=== PATIENT | male | born 1960 | race Caucasian/White ===

== ENCOUNTER 2017-02-26 18:20 | Inpatient (IN) | payer OTHER ==
[~2017-02-26] VITALS: Ht 177.8 cm; Wt 90.0 kg
[~2017-02-26 18:20] MED LIST: CYCL-319 PO; LYRI25 PO; OXYC30TA PO; OXYM30TA PO
[2017-02-26 18:45] VITALS: Ht 177.8 cm; Wt 90.0 kg
--- NOTE | 2017-02-26 19:26 | ERD ---
ER Documentation Chief Complaint Date/Time DATE: 02/26/17 TIME: 19:25 Chief Complaint chronic back pain due to back injury 2014 HPI 56-year-old male who presents emergency department for chronic mid/lower back pain that is due to his work injury in 2014. Stated that his pain is described as achy/sharp that radiates to his bilateral arm. Denies headache, loss of consciousness, dizziness, blurry vision, changes in vision, photophobia, facial pain, ear pain, throat pain, difficulty swallowing, neck pain, shoulder pain, chest pain, cough, hemoptysis, abdominal pain, , loss of appetite, nausea, vomiting, hematochezia, diarrhea, constipation, urinary symptoms, bladder and bowel incontinences, extremity weakness, extremity tenderness, numbness or tingling sensation, recent travel, recent exposure to illness, recent antibiotic use in the last 3 months, fever, chills. Allergy: Tramadol. PMH: Diabetes. Lumbar fusions. Medications: Metformin, oxycodone, Flexeril, Lyrica, fentanyl. Surgery: Lumbar fusion surgery last April 2016. Family history: Denies family history of cardiac before the age of 50, stroke, abdominal aortic aneurysm. Primary Social History: Stated that he got injured at work. Quit smoking cigarettes in December 2015. Denies use of alcohol, use of illegal drugs. ROS All systems reviewed and are negative except as per history of present illness. Medications Home Meds Reported Medications Cyclobenzaprine Hcl* (Cyclobenzaprine Hcl*) 10 Mg Tablet, 10 MG PO TID, #90 TAB 04/28/16 Pregabalin* (Lyrica*) 25 Mg Capsule, 20 MG PO TID, CAP 04/28/16 Oxycodone Hcl* (IR) (Oxycodone Hcl*) 30 Mg Tablet, 30 MG PO Q4H Y for PAIN, TAB 04/28/16 Oxymorphone Hcl (Opana ER) 30 Mg Tab.er.12h, 30 MG PO Q12, TAB 04/28/16 Allergies Allergies: Coded Allergies: tramadol (Verified Allergy, Unknown, rash, 04/28/16) PMhx/Soc History of Surgery: Yes (LT WRIST SX) Anesthesia Reaction: No Hx Neurological Disorder: No Hx Respiratory Disorders: No Hx Cardiac Disorders: No Hx Psychiatric Problems: No Hx Miscellaneous Medical Probl: No Hx Alcohol Use: No Hx Substance Use: No Hx Tobacco Use: No (QUIT 2 MOS AGO, SMOKED 1 PPD X40 YRS) Smoking Status: Former smoker Physical Exam Vitals Vital Signs Date Time Temp Pulse Resp B/P Pulse Ox O2 Delivery O2 Flow Rate FiO2 02/26/17 18:45 97.8 96 20 188/70 98 Physical Exam CONSTITUTIONAL: Well-appearing; well-nourished; in no apparent distress. HEAD: Normocephalic; atraumatic. EYES: Conjunctiva clear, sclera non-icteric, EOM intact. PERRL Ears: Hearing intact. EACs clear, TMs non-bulging, non-inflamed, translucent & mobile, ossicles normal appearance, No obstructions, no erythema, no discharges Nose: No obstructions. No polyps. No external lesions. Mucosa non-inflamed. No external lesions, septum and turbinates normal. No rhinorrhea. No discharges. Frontal sinus is non-tender to palpation. Maxillary sinus is non-tender to palpation. MOUTH: Moist mucous membranes, no lesion, no obstructions, no vesicles, no thrush, patent airway Throat: Uvula in midline. Right tonsil is +1 with no erythema, no exudate. Left tonsil is +1 with no erythema, no exudate. Tolerating secretions well. Good gag reflex. Patent airway. Neck: Supple, without lesions, bruits, or adenopathy. No mass. Thyroid non- enlarged and non-tender to palpation. CHEST: Symmetrical chest. Respirations even and not labored. No retractions noted. CARDIOVASCULAR: Normal S1, S2. RRR. No murmurs, gallops. RESPIRATORY: Normal chest excursion with respiration; breath sounds clear and equal bilaterally; no wheezes, rhonchi, or rales. Breathing even and unlabored. Speaking in clear, full, and complete sentences w/ ease. ABDOMEN: Normal bowel sounds normal. Soft, round, non-distended, non-guarding, no tenderness, no rebound, no organomegaly, no masses, no pulsating abdominal mass. No hernia. No peritoneal signs. : No CVA tenderness. BACK: Symmetrical shoulder. Spine is midline without deformity, tenderness. No evidence of trauma or deformity. PELVIS: Stable pelvis. No evidence of trauma or deformity. MUSCULOSKELETAL: Normal gait and station. No misalignment, asymmetry, crepitation, defects, tenderness, masses, effusions, decreased range of motion, instability, atrophy or abnormal strength or tone in the head, neck, spine, ribs , pelvis or extremities except there is tenderness to L-spine area with limited range of motion. Has bilateral straight leg test. Walks with a walker. No calf tenderness. NEUROVASCULAR: Distal pulses are present. Pedal pulse are present, equal, and normal. Capillary refills are < 2 seconds. NEUROLOGIC: Alert and oriented x4. Speaks full and clear sentences. Cranial Nerves II-XII normal. Sensation to pain, touch, and proprioception normal. Grossly unremarkable. No neurologic deficits. PSYCHOLOGICAL: The patients mood and manner are appropriate. No hallucinations , delusions. Not SI. Not HI. Has the capacity to decide for self SKIN: Normal for age and ethnicity; warm; dry; good turgor; no apparent lesions or exudates. No rashes, hives, discoloration. Intact. Results 24 hrs Current Medications Medications (Trade) Dose Ordered Sig/Chaitanya Route PRN Reason Start Time Stop Time Status Last Admin Dose Admin Oxycodone/ Acetaminophen (Endocet (10/ 325)) 1 tab ONCE ONCE PO 02/26/17 19:30 02/26/17 19:53 DC Hydromorphone HCl (Dilaudid) 2 mg ONCE STAT IM 02/26/17 19:52 02/26/17 19:53 DC 02/26/17 20:18 Ketorolac Tromethamine (Toradol) 30 mg ONCE STAT IV 02/26/17 20:49 02/26/17 20:50 DC 02/26/17 21:05 Procedures/MDM Examination: Please see physical examination. Disease process, medical treatment was explained to the patient and family member. They verbalized understanding and agreed with the diagnostic tests, medical treatment, and follow-up care. EKG: Normal sinus rhythm with ventricular rate of 88 bpm. No evidence of acute myocardial infarction. Radiology: X-ray of the L-spine Impression: L4-S1 transpedicular screws with interbody graft at L4-5 and L5-S1, findings similar to the intraoperative exposures of 04/28/201616. Grade 2 spondylolisthesis at L5-S1. Remainder of the examination is unremarkable. Treatment: Dilaudid 2 mg IM. Medical decision makin-year-old male who presents emergency department for chronic mid/lower back pain that is due to his work injury in 2014. Stated that his pain is described as achy/sharp that radiates to his bilateral arm. Patient's complaint, patient history about his complaint, my physical findings, diagnostic test results are considered distant with my final diagnosis of chronic low back pain. This case was discussed with supervising emergency room physician, Dr. Everett Sanchez who also examined the patient and he also talked to the surgeon, Dr. Gomez. Both of their decisions is to admit the patient. Case was endorsed to Dr. Everett Sanchez, supervising emergency room physician. Stated that he will processed admission. Departure Diagnosis: Primary Impression: Back pain Additional Impression: Chronic back pain Condition: Stable TAMIKA FERNANDEZ Feb 26, 2017 19:26 sentences, denies pain, has no neurological deficits, has no neurovascular deficits, difficulty of breathing. Breathing even and unlabored. Lung sounds are clear to auscultation. Not in distress. Appears comfortable. Ambulatory with steady gait. Appears satisfied with care provided here in ED. Departure Diagnosis: Primary Impression: Back pain Additional Impression: Chronic back pain Condition: Stable Additional Instructions: Instructed to follow-up with his PCP in 24-48 hours. Instructed to Call 911 for chest pain, shortness of breath. Advised to come back here in ED as soon as possible for severity of symptoms which includes but not limited to: any new symptoms; shortness of breath/difficulty of breathing; cardiovascular changes; severe gastrointestinal symptoms; signs and symptoms of bleeding and or infection; signs of compartment syndrome/neurovascular changes; neurological changes/deficits. Patient and family member verbalized understanding. TAMIKA FERNANDEZ Feb 26, 2017 19:26
[2017-02-26] MEDS ORDERED: OXYCODONE/ACETAMINOPHEN (10/325) TAB PO ONE (19:30)
[2017-02-26] MEDS ORDERED: HYDROmorphONE 2 MG/ML SYG IM STA (19:52)
--- NOTE | 2017-02-26 20:21 | RADRPT ---
PROCEDURE: XR Lumbar Spine. CLINICAL INDICATION: Low back pain. TECHNIQUE: AP, cone-down lateral, and lateral views of the lumbar spine were obtained. COMPARISON: Intraoperative C-arm exposures 04/28/2016 FINDINGS: Transpedicular screws are again visualized at L4, L5 and S1, the hardware satisfactory in appearance . Vertebral bodies are normal in height. No fracture is identified. Lumbar lordosis is preserved. Grade II spondylolisthesis of L5 relative to S1 is present. Interbody grafts at L4-5 and L5-S1 ar e noted with mild anterior spondylosis at these levels. The remaining discs are preserved in statur e. Paraspinal contours are unremarkable. RPTAT:HJJR IMPRESSION: 1. L4 - S1 transpedicular screws with interbody grafts at L4-5 and L5-S1, findings similar to the in traoperative exposures of 04/28/2016. 2. Grade II spondylolisthesis at L5-S1. 3. Remainder of the examination is unremarkable. Physician Elena Date Time Electronically viewed and signed by Physician Elena on 02/26/2017 20:21 /
[2017-02-26] MEDS ORDERED: KETOROLAC 30 MG INJ IV STA (20:49)
[2017-02-26] MEDS ORDERED: ACETAMINOPHEN 325 MG TAB PO PRN (22:00)
[2017-02-26] MEDS ORDERED: ONDANSETRON 4 MG INJ IV PRN (22:00)
[2017-02-26 22:01] LABS: ADD SCAN DIFF NO
--- NOTE | 2017-02-26 22:03 | EN ---
Date/Time of Note Date/Time of Note DATE: 02/26/17 TIME: 22:01 ER Progress Note This patient's workup began in fast track. Patient has had intractable pain is not responding to his OxyContin at home. I did call his orthopedic surgeon who performed his surgery and had an appoint with him today. Was unable to see his surgeon because the surgeon was in surgery. I spoke with , who stated the patient did have a complication of a syrinx, and he would agree with admission and can see the patient in the morning. Patient has been given 2 mg of Dilaudid I am also giving dilated jacked. Is refusing p.o., which is understandable because we have nothing p.o. strong as his OxyContin at home. I do not see any acute emergency that I can see the need for the patient to be admitted for intractable pain. Admission diagnosis: Intractable back pain, spondylolisthesis MARRY LORENZO DO Feb 26, 2017 22:03
[2017-02-26 22:06] LABS: BASOPHIL # 0.1 10^3/ul (0.0-0.1); BASOPHILS % 0.5 % (0.0-2.0); EOSINOPHILS # 0.2 10^3/ul (0.0-0.5); EOSINOPHILS % 1.4 % (0.0-7.0); HEMATOCRIT 44.2 % (42.0-52.0); HEMOGLOBIN 14.5 g/dl (14.0-18.0); LYMPHOCYTES # 3.7 10^3/ul (0.8-2.9); LYMPHOCYTES % 27.3 % (15.0-51.0); MEAN CORPUSCULAR HEMOGLOBIN 28.7 pg (29.0-33.0); MEAN CORPUSCULAR HGB CONC 32.8 g/dl (32.0-37.0); MEAN CORPUSCULAR VOLUME 87.5 fl (82.0-101.0); MEAN PLATELET VOLUME 10.3 fl (7.4-10.4); MONOCYTE # 0.7 10^3/ul (0.3-0.9); MONOCYTES % 5.3 % (0.0-11.0); NEUTROPHIL # 8.6 10^3/ul (1.6-7.5); NEUTROPHILS % 64.8 % (39.0-77.0); PLATELET COUNT 272 10^3/UL (140-415); RED BLOOD COUNT 5.05 10^6/ul (4.70-6.10); RED CELL DISTRIBUTION WIDTH 13.7 % (11.5-14.5); WHITE BLOOD COUNT 13.4 10^3/ul (4.8-10.8)
[2017-02-26] MEDS ORDERED: DIPHENHYDRAMINE 50 MG CAP PO ONE (22:30)
[2017-02-26 22:49] LABS: CALCIUM 9.3 mg/dl (8.4-10.2); CREATININE 0.81 mg/dl (0.61-1.24); POTASSIUM 4.6 mmol/L (3.5-5.1)
[2017-02-26] MEDS ORDERED: HYDROmorphONE 1 MG/ML SYG IV ONE (23:13)
[2017-02-27] MEDS ORDERED: morphine (ER) 30 MG TAB PO ONE (00:03)
[2017-02-27 00:10] VITALS: BP 199/100; PULSE 77; RESP 20
[2017-02-27] MEDS ORDERED: hydrALAzine 20 MG INJ IV ONE (00:30)
[2017-02-27] MEDS ORDERED: hydrALAzine 20 MG INJ IV PRN (01:00)
[2017-02-27] MEDS ORDERED: HYDROmorphONE 1 MG/ML SYG IV PRN (01:00)
[2017-02-27] MEDS ORDERED: ONDANSETRON 4 MG INJ IV PRN (01:00)
[2017-02-27] MEDS ORDERED: ZOLPIDEM 5 MG TAB PO PRN (01:00)
[2017-02-27] MEDS ORDERED: GLUCOSE GEL 15 GRAM TUBE BUCCAL PRN (01:15)
[2017-02-27] MEDS ORDERED: DEXTROSE 50% 50 ML SYRINGE IV PRN ×2 (01:15)
[2017-02-27] MEDS ORDERED: GLUCOSE GEL 15 GRAM TUBE PO PRN ×2 (01:15)
[2017-02-27] MEDS ORDERED: GLUCAGON 1 MG INJ IM PRN (01:15)
[2017-02-27] MEDS ORDERED: LORAZEPAM 2 MG INJ IV PRN (01:30)
[2017-02-27 01:40] VITALS: BP 160/80; PULSE 70; RESP 22
[2017-02-27] MEDS ORDERED: ACCU-CHEK XX SCH (02:00)
[2017-02-27] MEDS: oxyCODONE 15 MG TAB PO PRN ×2 (03:05→08:36)
[2017-02-27 05:44] LABS: ADD SCAN DIFF NO
[2017-02-27 05:50] LABS: BASOPHIL # 0.1 10^3/ul (0.0-0.1); BASOPHILS % 0.6 % (0.0-2.0); EOSINOPHILS # 0.3 10^3/ul (0.0-0.5); EOSINOPHILS % 2.1 % (0.0-7.0); LYMPHOCYTES # 4.1 10^3/ul (0.8-2.9); LYMPHOCYTES % 29.9 % (15.0-51.0); MEAN CORPUSCULAR HEMOGLOBIN 28.5 pg (29.0-33.0); MEAN CORPUSCULAR HGB CONC 32.6 g/dl (32.0-37.0); MEAN CORPUSCULAR VOLUME 87.5 fl (82.0-101.0); MEAN PLATELET VOLUME 10.9 fl (7.4-10.4); MONOCYTE # 0.9 10^3/ul (0.3-0.9); MONOCYTES % 6.8 % (0.0-11.0); NEUTROPHIL # 8.2 10^3/ul (1.6-7.5); NEUTROPHILS % 60.1 % (39.0-77.0); PLATELET COUNT 290 10^3/UL (140-415); RED BLOOD COUNT 5.26 10^6/ul (4.70-6.10); RED CELL DISTRIBUTION WIDTH 14.1 % (11.5-14.5); WHITE BLOOD COUNT 13.6 10^3/ul (4.8-10.8)
[2017-02-27 06:24] LABS: ALBUMIN 4.9 g/dl (3.3-4.9); ALBUMIN/GLOBULIN RATIO 1.63; BILIRUBIN,INDIRECT 0.1 mg/dl (0-1.1); BILIRUBIN,TOTAL 0.1 mg/dl (0.2-1.3); CREATININE 0.85 mg/dl (0.61-1.24); MAGNESIUM 1.8 mg/dl (1.7-2.5); PHOSPHORUS 3.7 mg/dl (2.5-4.9); POTASSIUM 4.3 mmol/L (3.5-5.1); TOTAL PROTEIN 7.9 g/dl (6.1-8.1)
--- NOTE | 2017-02-27 06:45 | HP ---
DATE OF ADMISSION: 02/26/2017 TIME SEEN: 2300. CHIEF COMPLAINT: Back pain and left thigh pain. HISTORY OF PRESENT ILLNESS: The patient is a 56-year-old male with a history of traumatic back inju ry status post L4-5 and L5-S1 decompression and instrumented fusion, chronic back pain and type 2 di abetes, who presented to the emergency department with the above-stated chief complaint. He stated he sustained a back injury 2 years ago and underwent decompression and instrumented fusion in [facility] of last year. He stated he has been having chronic back pain, but it acutely worsened over the past few days, which also includes left thigh pain. He sometimes with movement his back pain radia aj down to his left leg. He stated he has had urinary incontinence in the past, which has resolved for quite some time. The patient does not have any other complaints. His orthopedic surgeon is Dr Yuli Gomez and according to the patient, he is going to undergo another back surgery "to move s screws and adjustment". When he presented to the ER his blood pressure was 188/70, heart rate 96. Otherwise the rest of his vitals were stable. His blood pressure has been as high as 199/100. He presented with a WBC of 13 .4. Otherwise CBC and BMP are within normal limits. A lumbar spine x-ray was done which showed L4- S1 transpedicular screws interbody grafts at L4-5 and L5-S1, findings similar to the intraoperative exposure from 04/28/2016. Also noted on x-ray was grade 2 spondylolisthesis at L5-S1. Otherwise th e remainder of the examination was unremarkable. The patient received several pain medications in [facility] ER, including oxycodone, Toradol and a total of 3 mg of Dilaudid, but the patient continues to re port severe pain. REVIEW OF SYSTEMS: A 12-point review was performed and negative except as mentioned in the HPI. PAST MEDICAL HISTORY: As per HPI. PAST SURGICAL HISTORY: As per HPI. SOCIAL HISTORY: He is an ex-smoker. ALLERGIES: TRAMADOL. HOME MEDICATIONS 1. Cyclobenzaprine. 2. Oxycodone. 3. Opana ER. 4. Lyrica. PHYSICAL EXAMINATION: VITAL SIGNS: Blood pressure 160/80, heart rate 70, respiratory rate 22, temperature 98.2, oxygen sa turation 96% on room air. GENERAL: The patient is sitting at the edge of the bed, holding the rails. He looks uncomfortable and in distress. He is, however, alert and oriented x4, answering questions appropriately and able to speak in full sentences. HEENT: No obvious head deformity. Pupils equal and react to light. Extraocular muscles intact. CARDIOVASCULAR: Regular rate and rhythm. No extra sounds. LUNGS: Clear. ABDOMEN: Soft, nontender, nondistended. Positive bowel sounds. EXTREMITIES: No edema. There is pain elicited in the lower extremity with movement. Range of ranjit on is also limited at the hip because of pain in his thigh. BACK: There is an old well-healed surgical scar in the lower back region. Pain was elicited on palp ation, both in the upper back and lower back. LABORATORY: WBC 13.4, otherwise CBC and BMP are within normal limits. IMPRESSION: 1. Acute on chronic back pain. 2. History of traumatic back injury, status post L4-5 and L5-S1 decompression and instrumented fusi on. 3. Hypertensive urgency, most likely pain induced. 4. History of type 2 diabetes. 5. Systemic inflammatory response syndrome, as evidenced by leukocytosis and tachycardia, likely st ress-induced reaction. PLAN: Will adjust his pain medication for better pain control. He is to be seen by his orthopedic surgeon, Dr. Gomez. Will leave the decision up to his orthopedist as far his physical therapy i s concerned. Likely his severely elevated blood pressure is pain-induced and is actually getting be tter. If it remains high, despite adequate pain management, then will provide an antihypertensive. He will be on insulin while in house for diabetes. The patient also presented with SIRS, which I b elieve is pain-induced stress reaction. Will, however, check a urinalysis. Additional infectious w orkup as needed, based on his clinical course, and especially if he becomes febrile. Further workup and management per clinical course. Dictated By: JESSIKA OLIVAREZ/AMY Conf#: [id number] DID#: [id number]
[2017-02-27 07:13] VITALS: BP 150/80; PULSE 70; RESP 20
[2017-02-27] MEDS: ACCU-CHEK XX SCH ×2 (07:20→11:10)
[2017-02-27] MEDS ORDERED: INSULIN ASPART [NOVOLOG] 3 ML PEN SC SCH (07:50)
[2017-02-27] MEDS ORDERED: INSULIN GLARGINE [LANtus] 3 ML PEN SC SCH (08:00)
[2017-02-27 08:09] VITALS: BP 169/94; RESP 18
[2017-02-27 08:15] VITALS: BP 149/80; PULSE 86; RESP 18
[2017-02-27] MEDS: PREGABALIN 25 MG CAP PO SCH ×2 (08:36→13:05)
[2017-02-27] MEDS: CYCLOBENZAPRINE 10 MG TAB PO SCH ×2 (08:36→13:05)
[2017-02-27] MEDS ORDERED: HEPARIN 5,000 UNIT/0.5 ML VIAL SC SCH (09:00)
[2017-02-27] MEDS ORDERED: NICOTINE (21 MG/24 HR) PATCH TRANSDERM SCH (09:00)
[2017-02-27] MEDS: INSULIN ASPART [NOVOLOG] 3 ML PEN SC SCH ×2 (09:34→13:04)
[2017-02-27] MEDS ORDERED: IBUP-1542 PO (11:34)
[2017-02-27] MEDS ORDERED: METF500T4 PO (11:34)
[2017-02-27] MEDS ORDERED: IBUP800T25 PO (12:02)
[2017-02-27] MEDS ORDERED: OXYM40TA PO (12:02)
[2017-02-27] MEDS ORDERED: NALO25TA PO (12:02)
[2017-02-27] MEDS ORDERED: PREG150C PO (12:05)
[2017-02-27 14:00] VITALS: BP 139/84; PULSE 79; RESP 20
[2017-02-27] MEDS ORDERED: SPECIAL NON-STANDARD MEDICATION PO SCH ×2 (15:30→22:00)
[2017-02-27 16:07] LABS: URINE BILIRUBIN (Dip) NEGATIVE (NEGATIVE); URINE BLOOD (Dip) NEGATIVE (NEGATIVE); URINE COLOR LT. YELLOW (YELLOW); URINE KETONES (Dip) NEGATIVE (NEGATIVE); URINE LEUKOCYTE ESTERASE (Dip) NEGATIVE (NEGATIVE); URINE NITRITE (Dip) NEGATIVE (NEGATIVE); URINE UROBILINOGEN (Dip) 0.2 E.U./dL (0.1-1.0)
[2017-02-27 16:08] LABS: ADD UMIC NO; URINE TOTAL PROTEIN (Dip) NEGATIVE (NEGATIVE)
[2017-02-27] MEDS ORDERED: PREGABALIN 75 MG CAP PO SCH (21:00)
== END 2017-02-27 17:10 | disposition home or self-care (01) | DRG 552 ==
LOC: FTE 18:20 → MS1 21:58 → OBSVTOIN 02-27 12:49
PROVIDERS: ADMIT Internal Medicine; ATTEND Internal Medicine
DX: M54.9 Dorsalgia, unspecified (principal); R65.10 Systemic inflammatory response syndrome (SIRS) of non-infectious origin without acute organ dysfunction; G89.29 Other chronic pain; Z98.1 Arthrodesis status; E11.9 Type 2 diabetes mellitus without complications; I16.0 Hypertensive urgency; I10 Essential (primary) hypertension; Z87.828 Personal history of other (healed) physical injury and trauma
CPT/HCPCS: 36415; 72100; 80048; 80053; 81003; 82962; 83036; 83735; 84100; 85025; 93005; 96372; 96374; 96375; G0378; J0360; J1170; J1644; J1815; J1885; J2060; J2405

== ENCOUNTER → 2017-07-12 | Outpatient (CLI) | payer OTHER ==
[~2017-07-12] MED LIST changes: +ESOM40CA PO; +GLYB1TAB3 PO; +IBUP800T25 PO; -LYRI25 PO; +NALO25TA PO; -OXYC30TA PO; +OXYC5CAP17 PO; -OXYM30TA PO; +PREG150C PO
--- NOTE | 2017-07-12 17:33 | RADRPT ---
PROCEDURE: US bilateral lower extremity veins. CLINICAL INDICATION: Bilateral leg pain and swelling. TECHNIQUE: Multiple longitudinal and transverse images of the bilateral lower extremity veins were obtained with paige scale and color Doppler imaging. The common femoral vein, femoral vein, and popl iteal vein were evaluated. 2D grayscale measurements with compression sonography, color Doppler, and pulsed Doppler with augmentation. COMPARISON: No prior studies are available for comparison. FINDINGS: The bilateral common femoral, femoral and popliteal veins are normally compressible throughout. Col or flow demonstrates normal filling of the vessels. Normal waveforms are visualized and there is no rmal response to augmentation. IMPRESSION: 1. No evidence of deep vein thrombosis involving either lower extremity. RPTAT: QQ .Isidoro Page MD, MD Date Time Electronically viewed and signed by .Isidoro Page MD, on 07/12/2017 17:33 .R/
== END | disposition home or self-care (01) ==
LOC: VAS 16:06
PROVIDERS: ATTEND Specialist
DX: M79.605 Pain in left leg (principal); M79.604 Pain in right leg
CPT/HCPCS: 93970